=== PATIENT | male | born 1980 ===

== ENCOUNTER 2024-03-20 14:50 | Emergency (ER) | payer OTHER ==
[~2024-03-20] VITALS: Ht 172.7 cm; Wt 90.0 kg
[2024-03-20] MEDS ORDERED: ADVAIR 100-501 EACH INH (15:06)
[2024-03-20] MEDS ORDERED: VENTOLIN HFA18 GM INH (15:07)
[2024-03-20] MEDS ORDERED: ACETAMINOPHEN 500 MG TAB PO ONE (15:15)
[2024-03-20 15:24] LABS: BASOPHILS 0.3 % (0-2); EOSINOPHILS 1.2 % (0-6); HEMATOCRIT 43.6 % (35.0-50.0); HEMOGLOBIN 14.7 g/dL (12.0-18.0); LYMPHOCYTES 28.6 % (24-44); MCH 27.7 (27-36); MCHC 33.8 g/dl (30-36); MCV 81.9 fl (81-99); MONOCYTES 8.9 % (0-12); PLATELET COUNT 186 K/uL (140-440); RBC 5.32 M/ul (4.3-5.7); RDW 15.4 (10.5-15.0)
[2024-03-20 15:43] LABS: ALBUMIN 3.5 g/dL (3.4-5.0); ALBUMIN/GLOBULIN RATIO 0.92 (1.1-2.4); ANION GAP 10.9 (7-21); BILIRUBIN, TOTAL 0.4 ng/dL (0.2-1.0); BUN/CREATININE RATIO 17.52 (6.0-28.6); CALCIUM 8.8 mg/dL (8.5-10.1); CREATININE, SERUM 0.97 mg/dL (0.70-1.30); POTASSIUM 3.9 mmol/L (3.5-5.1); PROTEIN, TOTAL 7.3 g/dL (6.4-8.2)
[2024-03-20] MEDS ORDERED: NAPROSYN500 MG PO (17:07)
[2024-03-20 17:19] VITALS: BP 134/87
== END 2024-03-20 17:19 | disposition home or self-care (01) ==
LOC: ED 14:50
PROVIDERS: Emergency Medicine
DX: S83.92XA Sprain of unspecified site of left knee, initial encounter (principal); S20.219A Contusion of unspecified front wall of thorax, initial encounter; W10.9XXA Fall (on) (from) unspecified stairs and steps, initial encounter; Z87.828 Personal history of other (healed) physical injury and trauma; Z88.8 Allergy status to other drugs, medicaments and biological substances; Z79.899 Other long term (current) drug therapy
CPT/HCPCS: 36415; 70450; 71250; 72125; 73552; 73590; 73610; 74176; 80053; 83690; 85025; 99284-25; A9270